=== PATIENT | female | born 1995 | race Hispanic/Latino ===

== ENCOUNTER 2024-08-15 15:34 | Observation (INO) | payer BC ==
[~2024-08-15] VITALS: Ht 167.6 cm; Wt 95.3 kg
[2024-08-15 15:42] VITALS: BP 133/88; PULSE 91; RESP 16; TEMP 98.6; O2SAT 98
[2024-08-15] MEDS ORDERED: LACTATED RINGERS 1000ML 1,000 ML IV SCH (16:00)
[2024-08-15 16:18] LABS: APPEARANCE,URINE CLEAR (CLEAR); BILIRUBIN,URINE NEGATIVE (NEGATIVE); COLOR,URINE LIGHT-YELLOW (YELLOW); GLUCOSE, URINE (UA) NEGATIVE (NEGATIVE); KETONES,URINE NEGATIVE (NEGATIVE); LEUKOCYTE ESTERASE ,URINE 500 Leu/uL (NEGATIVE); NITRATE,URINE NEGATIVE (NEGATIVE); OCCULT BLOOD,URINE NEGATIVE (NEGATIVE); PH,URINE 5.5 (5.0-8.0); PROTEIN,URINE NEGATIVE (NEGATIVE); UROBILINOGEN,URINE 0.2 mg/dL (0.2-1.0)
[2024-08-15 16:21] LABS: ADD UA MICROSCOPIC YES
[2024-08-15 16:23] LABS: BACTERIA,URINE RARE /HPF (None Seen); MUCUS,URINE RARE LPF (None Seen); OTHER CASTS, URINE 1 /LPF (None Seen); SQUAMOUS EPITHELIAL CELL,UR RARE /HPF (0-2)
--- NOTE | 2024-08-15 16:34 | HMCIMG ---
US OB >14 WEEKS HISTORY: Leaking COMPARISON: None TECHNIQUE: ultrasound study was performed. FINDINGS: There is single intrauterine gestation with estimated gestational age of 37 weeks. heart rate is 148 beats per minute. The fetus is in cephalic presentation with longitudinal lie. weight is estimated to be 3066 grams. Amniotic fluid volume is 10 centimeter. The placenta is located in the fundus. No evidence of placenta previa is seen. There is no evidence of nuchal cord. IMPRESSION: 1. There is single intrauterine gestation with estimated gestational age of 37 weeks. heart rate is 148 beats per minute.
[2024-08-15] MEDS: metRONIDazole 500 MG TABLET PO ONE (17:34)
== END 2024-08-15 17:42 | disposition home or self-care (01) ==
LOC: EDH 15:34 → LDH 15:35
PROVIDERS: ADMIT Obstetrics & Gynecology; ATTEND Obstetrics & Gynecology
DX: O26.893 Other specified pregnancy related conditions, third trimester (principal); R10.9 Unspecified abdominal pain; Z3A.37 37 weeks gestation of pregnancy
CPT/HCPCS: 87086; 81001; 76805; 82120; G0378 ×2; G0379

== ENCOUNTER 2024-08-31 21:45 | Observation (INO) | payer BC ==
[~2024-08-31] VITALS: Ht 167.6 cm; Wt 91.6 kg
[~2024-08-31 21:45] MED LIST: PREN1TAB80 PO
[2024-08-31 21:53] VITALS: BP 128/91; PULSE 82; RESP 16; TEMP 97
--- NOTE | 2024-08-31 22:00 | NUR ---
CALLED L&D, PER GIOVANY, CLEAR IN ER AND SEND TO L&D IF NEEDED
--- NOTE | 2024-08-31 22:12 | NUR ---
PER DR JEONG, PT TO GO TO L&D STAT
[2024-08-31 22:50] LABS: HEMATOCRIT 30.1 % (36-48); MEAN CORPUSCULAR HEMOGLOBIN 27.2 pg (27.0-33.0); MEAN CORPUSCULAR HGB CONC 31.6 g/dL (32.0-36.0); MEAN CORPUSCULAR VOLUME 86.2 fL (79-99); RED BLOOD CELL COUNT(AUTO) 3.49 MIL/uL (4.00-5.50); RED CELL DISTRIBUTION WIDTH 15.9 % (11.0-15.5); WHITE BLOOD COUNT (AUTO) 10.6 K/uL (4.8-10.8)
== END 2024-08-31 23:45 | disposition home or self-care (01) ==
LOC: EDH 21:45 → LDH 22:21
PROVIDERS: ADMIT Obstetrics & Gynecology; ATTEND Obstetrics & Gynecology
DX: O46.93 Antepartum hemorrhage, unspecified, third trimester (principal); O26.893 Other specified pregnancy related conditions, third trimester; R10.2 Pelvic and perineal pain; Z3A.39 39 weeks gestation of pregnancy; Z79.899 Other long term (current) drug therapy
CPT/HCPCS: 96372; 85027; 36415; G0379; G0378; J2210; 59025